=== PATIENT | female | born 1965 | race Hispanic/Latino ===

== ENCOUNTER 2022-07-06 11:37 | Emergency (ER) | payer OTHER, SELFPAY ==
--- NOTE | 2022-07-06 13:05 | ED.URI ---
HPI - URI/Sore Throat General Chief Complaint: Upper Respiratory Infection Stated Complaint: covid symtoms Time Seen by Provider: 07/06/22 13:30 History of Present Illness HPI Narrative: Kari Momin is a 57-year-old female with no PMH who comes here for COVID testing as she has a symptoms sore throat since yesterday. She has had COVID before Related Data Home Medications Medication Instructions Recorded Confirmed No Home Medications 07/06/22 07/06/22 Allergies Allergy/AdvReac Type Severity Reaction Status Date / Time No Known Allergies Allergy Unverified 07/06/22 13:02 Review of Systems Review of Systems: CONSTITUTIONAL: Denies fever, chills, sweats. EYES: Denies visual changes, redness, discharge. ENT: Denies rhinorrhea, mild congestion, has sore throat, otalgia. CARDIOVASCULAR: Denies chest pain, palpitations, edema. RESPIRATORY: Denies dyspnea, wheezing, cough GASTROINTESTINAL: Denies abdominal pain, nausea, vomiting, diarrhea. GENITOURINARY: Denies dysuria, hematuria, abnormal discharge SKIN: Denies rash or itching. NEUROLOGIC: Denies numbness, or focal weakness. PSYCHIATRIC: Denies anxiety or depression. PMFSH Comments At time of signature, I agree with nursing past medical, surgical, social and family history. There is no relevant family history pertinent to the presenting complaint. Exam Narrative: GENERAL: This is a well-nourished, well-developed patient, in mild distress. HEAD: normocephalic, atraumatic. EYES: Sclera clear/white. Vision is grossly intact. EARS: External ears normal, auditory canals mild erythema and without drainage, TM bulging on left. Hearing grossly intact. NOSE: External nose normal without nasal discharge, nares without redness, no rhinorrhea. THROAT: Mucous membranes moist, posterior pharynx erythema-pain is 4/10 NECK: Neck supple, non-tender CARDIOVASCULAR: Regular rate and rhythm without murmurs, gallops, or rubs. RESPIRATORY: Clear to auscultation. Breath sounds equal bilaterally. No wheezes, rales, or rhonchi. GASTROINTESTINAL: Not done, SKIN: warm, intact with no suspicious lesions or rash, good texture and turgor. NEURO: awake, alert, and oriented to person, place and time. There were no obvious focal neurologic abnormalities. Steady gait EXTREMITIES: Normal range of motion. BACK: Nontender without deformity Course Course Emergency Course: Patient here with 2 days of symptoms of sore throat and mild congestion COVID test- negative Started on zyrtec and flonase Level of Care: Express Care Visit Vital Signs Vital signs: Vital Signs Temperature 96.5 F L 07/06/22 13:15 Pulse Rate 59 L 07/06/22 13:15 Respiratory Rate 16 07/06/22 13:15 Blood Pressure 144/75 H 07/06/22 13:15 Pulse Oximetry 100 07/06/22 13:15 Oxygen Delivery Room Air 07/06/22 13:15 Temperature 96.5 F L 07/06/22 13:15 Pulse Rate 59 L 07/06/22 13:15 Respiratory Rate 16 07/06/22 13:15 Blood Pressure 144/75 H 07/06/22 13:15 Pulse Oximetry 100 07/06/22 13:15 Oxygen Delivery Room Air 07/06/22 13:15 MDM - URI/Sore Throat Differential Diagnosis Differential diagnosis: Likely upper respiratory infection, sinusitis, viral infection, pharyngitis and other Lab Data Labs: Lab Results 07/06/22 Range/Units 13:32 POC SARS CoV-2 Ag Negative (Negative) Critical Care Time Critical Care Time Critical Care Time: No Discharge Plan Discharge Clinical Impression: Upper respiratory infection Patient Disposition: Home, Self-Care Condition: Stable Instructions: Antibiotic Form, Upper Respiratory Infection (DC) Additional Instructions: Take some Zyrtec 10 mg a day which is [id number] Flonase nasal spray which also could be purchased [id number] at a pharmacy Drink fluids and rest Prescriptions: No Action No Home Medications Follow-up/Referrals: Jorge Duval, DIRECT OF [employer], [place] [Primary Care Provider] -
[2022-07-06 13:15] VITALS: BP 144/75; PULSE 59; RESP 16; TEMP 35.8; O2SAT 100
== END 2022-07-06 14:26 | disposition home or self-care (01) ==
PROVIDERS: Emergency Provider Nurse Practitioner; PCP Nurse Practitioner
DX: J06.9 Acute upper respiratory infection, unspecified (principal); Z20.822 Contact with and (suspected) exposure to COVID-19; Z86.16 Personal history of COVID-19
CPT/HCPCS: 87426; 99213; C9803; G0463

== ENCOUNTER 2023-08-23 11:09 | Emergency (ER) | payer SELFPAY ==
--- NOTE | 2023-08-23 11:13 | ED.SKABFB ---
HPI - Skin/Abscess/Foreign Bdy General Chief complaint: Skin/Abscess/Foreign Body Stated complaint: Rash Time Seen by Provider: 08/23/23 11:33 Source: patient and RN notes reviewed Mode of arrival: ambulatory Limitations: no limitations History of Present Illness HPI narrative: 58 year old female presents with concern for poison sheba rash. She reports itchy rash that started on her left arm is known spreading to her chest and other arm. She denies [id number] intervention. She reports some blistering of starting. She denies swollen lips, swollen tongue, trouble breathing. complaint: rash Related Data Allergies Allergy/AdvReac Type Severity Reaction Status Date / Time No Known Allergies Allergy Verified 08/23/23 11:16 Review of Systems Review of Systems: CONSTITUTIONAL: Denies malaise, chills, sweats, or fever. EYES: Denies redness, or discharge. ENT: Denies rhinorrhea, congestion, swollen lips, swollen tongue CARDIOVASCULAR: Denies chest pain, palpitations, or edema. RESPIRATORY: Denies cough or dyspnea. GASTROINTESTINAL: Denies abdominal pain, nausea, vomiting SKIN: Reports itchy rash to bilateral forearms and chest MUSCULOSKELETAL: Denies joint pain or myalgia. NEUROLOGIC: Denies headache. All systems reviewed & are unremarkable except as noted in HPI and below PMFSH Comments At time of signature, agree with nursing past medical, surgical, social and family history. There is no relevant family history pertinent to the presenting complaint Exam Narrative: GENERAL: Well-appearing, well-nourished, and in no acute distress. HEAD: Normocephalic, atraumatic. EYES: PERRLA, conjunctivae clear, and EOMI. ENT: Mucous membranes moist. Oropharynx without edema, erythema or lesions. NECK: Supple. No lymphadenopathy CHEST: Clear to auscultation. No respiratory distress. HEART: Regular rate and rhythm. SKIN: Warm, dry. Erythematous patches of papular rash with occasional vesicles no to bilateral forearms and chest NEURO: Alert and oriented x3. PSYCH: Normal mood and affect Course Course Emergency Course: Patient is aware of diagnosis, understands and agrees to treatment plan. Anticipatory guidance given. Patient agrees to follow-up as directed and is aware of reasons to seek care at the emergency department. Portions of this record may have been created with voice recognition software Level of Care: Express Care Visit Vital Signs Vital signs: Reviewed. [facility] - Skin/Abscess/Foreign Bdy MDM Narrative Medical decision making narrative: Does not appear at this time to be erythema multiforme, bullous, SJS, TEN; no evidence at this time to suggest RMSF, endocarditis or Lyme disease; patient looks well, nontoxic and is tolerating oral intake; no neurologic signs or symptoms; no headache, photophobia or neck pain; afebrile; appropriate for initial outpatient treatment; discussed the importance of follow-up, patient agrees; question, viral exanthema, contact dermatitis, allergic dermatitis, eczema, urticaria. No soft palate or uvula edema, no tongue, lip edema or other mucosal involvement, no respiratory compromise, no stridor, no wheezing, no wheezing, no history of syncope, no hypotension, no nausea, vomiting, or diarrhea. Instructed patient to go to nearest ER immediately for any worsening symptoms including but not limited to: fever, spreading rash, pain, sore throat, headache, dizziness, chest pain, trouble breathing, or any symptoms concerning to the patient. Critical Care Time Critical Care Time Critical Care Time: No Discharge Plan Discharge Clinical Impression: Contact dermatitis Qualifiers: Contact dermatitis type: irritant Contact dermatitis trigger: non-food plants Qualified Code(s): L24.7 - Irritant contact dermatitis due to plants, except food Patient Disposition: Home, Self-Care Condition: Stable Instructions: Poison Sheba (ED) Additional Instructions: Prevention is always better [place]
[2023-08-23 11:21] VITALS: BP 115/57; PULSE 65; RESP 16; TEMP 36.9; O2SAT 100
== END 2023-08-23 11:45 | disposition home or self-care (01) ==
PROVIDERS: Emergency Provider Nurse Practitioner; PCP Physician Assistant
DX: L24.7 Irritant contact dermatitis due to plants, except food (principal)
CPT/HCPCS: 99213; G0463